=== PATIENT | female | born 1990 | race Caucasian/White ===

== ENCOUNTER 2017-12-26 08:19 | Day surgery (SDC) | payer MEDICARE, OTHER ==
[2017-12-20 08:52] VITALS: BMI 40.6
[2017-12-26] MEDS ORDERED: LACTATED RINGERS 1,000 ML IV ONE (08:52)
[2017-12-26 08:53] VITALS: RESP 16; TEMP 99.1
[2017-12-26] MEDS ORDERED: LIDOCAINE 1% 20 ML VIAL (10MG/ML) FOR IV START INTRADERMA ONE ×2 (08:54)
[2017-12-26] MEDS ORDERED: LACTATED RINGERS 1,000 ML IV SCH (09:15)
--- NOTE | 2017-12-26 09:59 | P.PCN ---
Date of Procedure: 12/26/17 Surgeon: Ravi Choudhary Pathology: none sent Condition: stable Disposition: PACU Description of Procedure: PREOPERATIVE DIAGNOSIS: 1-eval pseudotumor cerebri POSTOPERATIVE DIAGNOSIS: same PROCEDURE 1. Diagnostic lumbar puncture ANESTHESIA: Local with 1% lidocaine; conscious sedation with Versed only EBL: Minimal PROCEDURE INDICATION: The patient with persistent headaches due to presumed pseudotumor cerebri who presents for diagnostic LP as ordered by patient's neurologist. No use of blood thinners. PROCEDURE DESCRIPTION / TECHNIQUE: The patient was seen and identified in the preoperative area. Risks, benefits, complications, and alternatives were discussed with the patient, including but not limited to bleeding, infection, nerve damage, allergic reactions to medications, and spinal headache. The patient agreed to proceed with the procedure and signed the consent after all questions were answered. Vital signs were stable. Patient was taken to the procedure room and time out was completed to confirm patient position, procedure, area of pain, and allergies. The patient was placed in the left lateral decubitus position on procedure table with help from nursing staff. The lumbosacral area was prepped and draped in the usual sterile fashion. Vital signs were closely monitored during the procedure. After localization with 1% lidocaine, a 22-gauge 3.5-inch spinal needle was placed in the L2-L3 interspace. Stylet was removed and clear cerebrospinal fluid was obtained. Opening pressure was measured to be 35 ml H2O. 10 ml CSF was removed and closing pressure was approximately 24 cm H2O. The needle was then removed, area was cleansed, and bandage was applied. COMPLICATIONS: None COMMENTS: None DISPOSITION / PLANS: The patient was placed in a supine position and transferred to the recovery area in a stable condition for observation. There was no evidence of lower extremity motor or sensory deficit after the procedure. Patient was discharged from the recovery room after meeting discharge criteria. Home discharge instructions were given to the patient by the staff including to consume significant amount of fluid and caffeine. The patient was reexamined prior to discharge and there were no issues. The patient will follow up with her neurologist as scheduled.
[2017-12-26] MEDS ORDERED: IV FLUID CONTINUATION 1,000 ML IV ONE (10:32)
[2017-12-26 12:24] VITALS: BP 137/82; PULSE 106
== END 2017-12-26 12:37 | disposition home or self-care (01) ==
LOC: ORPAIN 08:19
PROVIDERS: ATTEND Anesthesiology
DX: R51 Headache (principal); Z91.040 Latex allergy status; E66.01 Morbid (severe) obesity due to excess calories; Z68.41 Body mass index [BMI] 40.0-44.9, adult
CPT/HCPCS: 81025; 62270; J2250; J2001; 99152